=== PATIENT | male | born 2000 | race Caucasian/White ===

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

== ENCOUNTER 2021-07-31 08:02 | Emergency (ER) | payer OTHER ==
[~2021-07-31] VITALS: Ht 172.7 cm; Wt 66.7 kg
[2021-07-31 08:03] VITALS: BP 144/100
--- NOTE | 2021-07-31 08:10 | NUR ---
Patient ambulated with steady gait to bed 4.
--- NOTE | 2021-07-31 08:19 | NUR ---
PT IN GOWN ON BED WITH SIDE RAILS UP X1 BED AT LOWEST POSITION. URINE OBTAINED.
--- NOTE | 2021-07-31 08:20 | NUR ---
21YR OLD MALE BIB SELF C/O BACK PAIN. PT STATES PAIN STARTED YESTERDAY AFTER PLAYING BASKETBALL. DENIES TRAUMA. PAIN LEVEL 10/01. PT IN BED RESTING WITH NO DISTRESS NOTED. MOM AT BEDSIDE. SIDE RAILS UP X1 BED AT LOWEST POSITION NKDA ASTHMA
--- NOTE | 2021-07-31 08:40 | NUR ---
BIB SELF C/O 10/01 LOLITA MID BACK PAIN AFTER PLAYING BASKETBALL X YESTERDAY.PMH: ASTHMA. DENIES N/V/D; SKIN IS PINK/WARM/DRY; AAOX4 WITH EVEN AND STEADY GAIT; LUNGS CLEAR BL; HR EVEN AND REGULAR; PT DENIES ANY FEVER, CP, SOB, OR COUGH AT THIS TIME; PATIENT POSITIONED FOR COMFORT; HOB ELEVATED; BEDRAILS UP X1; BED DOWN. ER MD MADE AWARE OF PT STATUS.
[2021-07-31] MEDS ORDERED: KETOROLAC 30 MG/ML VIAL IM ONE (08:55)
[2021-07-31] MEDS ORDERED: diazePAM 5 MG TAB PO ONE (08:55)
--- NOTE | 2021-07-31 09:09 | NUR ---
MOM AT BEDSIDE. PATIENT MEDICATED PAIN LEVEL 7/10.
[2021-07-31 09:12] LABS: APPEARANCE,URINE CLEAR (CLEAR); BILIRUBIN,URINE NEGATIVE (NEGATIVE); BLOOD, URINE NEGATIVE (NEGATIVE); COLOR,URINE YELLOW (YELLOW); LEUKOCYTE ESTERASE ,URINE NEGATIVE (NEGATIVE); NITRITE, URINE NEGATIVE (NEGATIVE); UGLUCOSE NEGATIVE (NEGATIVE)
--- NOTE | 2021-07-31 09:31 | NUR ---
DR REYNAGA AT BEDSIDE
--- NOTE | 2021-07-31 10:36 | NUR ---
XRAY DONE PENDING RESULTS
[2021-07-31 11:20] VITALS: BP 148/78
--- NOTE | 2021-07-31 11:21 | NUR ---
The patient's care was reviewed and supervised by Yue Greenwood RN.
== END 2021-07-31 11:20 | disposition home or self-care (01) ==
LOC: MED 08:02
DX: M79.10 Myalgia, unspecified site (principal); R06.02 Shortness of breath
CPT/HCPCS: 72080; 81003; 96372; 99284; J1885